=== PATIENT | female | born 1980 | race Caucasian/White ===

== ENCOUNTER 2020-06-11 08:05 | Observation (INO) | payer MEDICAID ==
[2020-06-11] MEDS ORDERED: ALD250 GT (11:02)
[2020-06-11] MEDS ORDERED: METF-816 PO (11:02)
[2020-06-11] MEDS ORDERED: LOPHC2 GT (11:02)
[2020-06-11] MEDS ORDERED: AMLO10TA4 PO (11:02)
== END 2020-06-11 08:50 | disposition home or self-care (01) ==
LOC: 8 EST LDRP 08:05
PROVIDERS: ADMIT Obstetrics & Gynecology; ATTEND Obstetrics & Gynecology
DX: O26.893 Other specified pregnancy related conditions, third trimester (principal); R10.2 Pelvic and perineal pain; Z3A.35 35 weeks gestation of pregnancy
CPT/HCPCS: 99281; G0378

== ENCOUNTER 2020-06-11 10:54 | Emergency (ER) | payer MEDICAID ==
[~2020-06-11] VITALS: Ht 152.4 cm; Wt 160.0 kg
[2020-06-11] MEDS ORDERED: ALD250 GT (11:02)
[2020-06-11] MEDS ORDERED: METF-816 PO (11:02)
[2020-06-11] MEDS ORDERED: LOPHC2 GT (11:02)
[2020-06-11] MEDS ORDERED: AMLO10TA4 PO (11:02)
[2020-06-11 11:38] LABS: BASOPHILS % 0.7 % (0.0-2.0); EOSINOPHILS % 1.3 % (0.0-5.0); HEMATOCRIT. 35.4 % (36.0-48.0); HEMOGLOBIN. 11.9 g/dL (12.0-16.0); LYMPHOCYTES % 46.1 % (20.0-50.0); MEAN CORPUSCULAR HEMOGLOBIN 27.5 pg (28.0-32.0); MEAN CORPUSCULAR VOLUME 81.8 fL (81.0-99.0); MEAN PLATELET VOLUME 8.8 fl (7.4-10.4); MONOCYTES % 7.9 % (2.0-8.0); PLATELET 232 x1000/uL (130-400); RED BLOOD CELL COUNT 4.33 mill/uL (4.2-5.4); RED CELL DISTRIBUTION WIDTH 15.6 % (11.6-14.6)
[2020-06-11 11:45] LABS: CHLORIDE 103 mEq/L (98-107)
[2020-06-11] MEDS ORDERED: METHYLDOPA 250MG TABLET PO ONE (11:45)
[2020-06-11 11:49] LABS: ETHANOL BLOOD < 10 mg/dL
[2020-06-11 11:52] LABS: PROTHROMBIN TIME 10.3 sec (9.6-11.0)
[2020-06-11 11:57] LABS: B-HCG QUANTITATIVE < 1 mIU/mL (<3)
[2020-06-11 12:29] LABS: HCG SCREEN NEGATIVE
[2020-06-11 12:30] VITALS: BP 172/101
[2020-06-11] MEDS ORDERED: POTASSIUM CHLORIDE 20MEQ TABLET SR PO ONE (13:00)
== END 2020-06-11 12:52 | disposition left against medical advice (07) ==
LOC: ER 11:11
DX: O16.3 Unspecified maternal hypertension, third trimester (principal); O24.419 Gestational diabetes mellitus in pregnancy, unspecified control; Z3A.35 35 weeks gestation of pregnancy; Z98.890 Other specified postprocedural states; Z91.14 Patient's other noncompliance with medication regimen; Z98.51 Tubal ligation status
CPT/HCPCS: 36415; 80053; 80320; 83615; 83735; 83880; 84484; 84702; 84703; 85025; 86850; 86900; 93005; 99285; G0480